=== PATIENT | female | born 1965 | race Two or more races ===

== ENCOUNTER 2022-07-07 12:44 | Emergency (ER) | payer MEDICAID ==
[~2022-07-07] VITALS: Ht 170.2 cm; Wt 109.2 kg
[2022-07-07] MEDS ORDERED: diphenhdrAMINE HCL 25 MG CAP PO ONE (13:15)
[2022-07-07 15:04] VITALS: BP 109/76
[2022-07-07] MEDS ORDERED: PRED20TA2 PO (16:00)
[2022-07-07] MEDS ORDERED: diphenhdrAMINE HCL 50 MG/1 ML VL IM ONE (16:00)
[2022-07-07] MEDS ORDERED: DexAMETHasone SOD PHOS 10MG/1ML VIAL INJ IM ONE (16:00)
[2022-07-07] MEDS ORDERED: EPIN0.1I11 IJ (16:00)
[2022-07-07] MEDS ORDERED: BACDST PO (16:00)
== END 2022-07-07 16:14 | disposition home or self-care (01) ==
LOC: ER 12:44
DX: T78.40XA Allergy, unspecified, initial encounter (principal); L03.90 Cellulitis, unspecified; G89.29 Other chronic pain; Z88.1 Allergy status to other antibiotic agents; Z88.0 Allergy status to penicillin; X58.XXXA Exposure to other specified factors, initial encounter
CPT/HCPCS: 96372; 99284; J1100; J1200

== ENCOUNTER 2022-07-14 08:42 | Emergency (ER) | payer MEDICAID ==
[~2022-07-14] VITALS: Ht 170.2 cm; Wt 104.3 kg
[~2022-07-14 08:42] MED LIST: BACDST PO; EPIN0.1I11 IJ; PRED20TA2 PO
[2022-07-14 09:20] VITALS: BP 144/87
[2022-07-14] MEDS ORDERED: DexAMETHasone SOD PHOS 10MG/1ML VIAL INJ IM ONE (10:00)
[2022-07-14] MEDS ORDERED: CEPH-510 PO (10:36)
[2022-07-14] MEDS ORDERED: LORA10CA PO (10:36)
== END 2022-07-14 10:41 | disposition home or self-care (01) ==
LOC: ER 08:42
DX: R21 Rash and other nonspecific skin eruption (principal); Z79.899 Other long term (current) drug therapy; Z88.0 Allergy status to penicillin; Z88.1 Allergy status to other antibiotic agents
CPT/HCPCS: 96372; 99283; J1100